=== PATIENT | male | born 1940 | race Caucasian/White ===

== ENCOUNTER 2022-04-18 09:54 | Outpatient (CLI) | payer MEDICARE, OTHER ==
[2022-04-18] MEDS ORDERED: iohexol 350MG/ML 100ml bottle IV ONE (10:08)
== END 2022-04-18 23:59 | disposition home or self-care (01) ==
LOC: RAD 09:54
PROVIDERS: ATTEND Family Medicine
DX: R93.0 Abnormal findings on diagnostic imaging of skull and head, not elsewhere classified (principal); R29.6 Repeated falls; R26.81 Unsteadiness on feet; I77.9 Disorder of arteries and arterioles, unspecified; R60.0 Localized edema
CPT/HCPCS: 70496; 70498; 93925; J3490; Q9967